=== PATIENT | female | born 1995 | race Caucasian/White ===

== ENCOUNTER 2019-02-28 07:25 | Emergency (ER) | payer BC ==
[~2019-02-28] VITALS: Ht 167.6 cm; Wt 65.8 kg
--- NOTE | 2019-02-28 07:31 | Emergency Room Report ---
History of Present Illness General Chief Complaint: Prophylaxis Source: Patient Present Illness HPI 23-year-old female presents with exposure to meningitis prior to arrival, has no symptoms at the moment. Onset was prior to arrival, no aggravating relieving factors severity is mild. Allergies: Coded Allergies: PEGASPARGASE (Verified Allergy, Unknown, 02/28/19) Patient History Past Medical History: see triage record Reviewed Nursing Documentation: PMH: Agreed; PSxH: Agreed Review of Systems All Other Systems: negative except mentioned in HPI Physical Exam General Appearance: well appearing, no apparent distress Head: normocephalic, atraumatic ENT: hearing grossly normal, normal voice Neck: full range of motion, supple Respiratory: no respiratory distress, speaking full sentences Musculoskeletal: gait/station normal Neurologic: alert, normal gait Psychiatric: mood/affect normal Skin: no rash Medical Decision Making Diagnostic Impression: Primary Impression: Need for prophylactic antibiotic ER Course 23-year-old female presents with exposure to bacterial meningitis, will start prophylaxis, ceftriaxone 250mg IM Disposition: HOME, SELF-CARE Condition: Stable Scripts No Active Prescriptions or Reported Meds Referrals: [facility] Patient Instructions: Bacterial Meningitis Additional Instructions: The patient was provided with discharge instructions, notified to follow-up with a primary care doctor and or specialist in the next 24-48 hours, and to return to the ED if they have worsening of their symptoms. Please note that this report is being documented using [employer] technology. This can lead to erroneous entry secondary to incorrect interpretation by the dictating instrument. Tavo Moon MD Feb 28, 2019 07:31
[2019-02-28] MEDS ORDERED: Lidocaine 1% MPF 10mg/ml 5ml INJ ONE (08:00)
--- NOTE | 2019-02-28 08:20 | NUR ---
ER DISCHARGE NOTE: Patient is cleared to be discharged per ERMD, pt is aox4, on room air, with stable vital signs. pt was given dc instructions, pt was able to verbalize understanding, pt is able to ambulate with steady gait. pt took all belongings.
[2019-02-28 08:24] VITALS: BP 109/75
[2019-02-28 08:26] VITALS: BP 109/75
== END 2019-02-28 08:27 | disposition home or self-care (01) ==
LOC: EMR 08:00
DX: Z20.811 Contact with and (suspected) exposure to meningococcus (principal); Z88.8 Allergy status to other drugs, medicaments and biological substances
CPT/HCPCS: 96372; 96374; 99284; J0696